=== PATIENT | male | born 1970 | race Caucasian/White ===

== ENCOUNTER 2020-04-22 08:54 | Outpatient (CLI) | payer OTHER ==
[~2020-04-22] VITALS: Ht 180.3 cm; Wt 93.0 kg
[2020-04-22] MEDS ORDERED: albuterol 2.5 MG/3 ML nebule NEB PRN (09:35)
== END 2020-04-22 23:59 | disposition home or self-care (01) ==
LOC: RT 08:54
PROVIDERS: ATTEND Orthopaedic Surgery
DX: R06.02 Shortness of breath (principal)
CPT/HCPCS: 94060; 94760